=== PATIENT | female | born 1965 | race Caucasian/White ===

== ENCOUNTER → 2020-01-10 | Emergency (ER) | payer OTHER ==
[~2020-01-10] VITALS: Ht 157.5 cm; Wt 49.9 kg
[~2020-01-10] MED LIST: ASPirin-EC 325mg tab PO ONE; IOHEXOL 300 MG/ML 100ML BOTTLE IJ ONE; MORPHINE SULFATE 4 MG/ML SYR/VIAL IV ONE; ONDANSETRON HCL 4 MG/2 ML VIAL IV ONE; PIPERACILLIN-TAZOB 3.375GM 100 ML IV ONE; SODIUM CHLORIDE 0.9% 1,000 ML IV ONE; VANCOMYCIN 1GM/250ML 250 ML IV ONE
[2020-01-10 21:58] LABS: Basophils # (auto) 0.1 10 ^3/uL (0-0.2); Basophils % (auto) 0.7 % (0.0-2.0); Eosinophils # (auto) 0.1 10 ^3/uL (0-0.8); Lymphocytes # (auto) 2.2 10 ^3/uL (0.4-5.4); Mean Corpuscular Volume 67.1 fL (80.0-100.0); Neutrophils # (auto) 16.6 10 ^3/uL (1.6-8.6)
[2020-01-10 22:00] LABS: Eosinophils % (auto) 0.6 % (0.0-7.0); Hematocrit 30.9 % (36.0-46.0); Hemoglobin 9.4 g/dL (12.2-16.2); Lymphocytes % (auto) 11.1 % (10.0-50.0); Mean Corpuscular Hemoglobin 20.5 pg (28.0-32.0); Mean Corpuscular Hgb Conc. 30.5 g/dL (32.0-36.0); Monocytes # (auto) 0.9 10 ^3/uL (0-1.3); Monocytes % (auto) 4.5 % (0.0-12.0); Neutrophils % (auto) 83.1 % (37.0-80.0); Red Cell Distribution Width 17.8 % (11.8-14.3)
[2020-01-10 22:07] LABS: Urine Bacteria MOD /hpf (None Seen); Urine Blood 2+ /uL (Negative); Urine Mucus FEW (None Seen); Urine WBC 292 /hpf (0 - 5); Urine WBC Clumps PRESENT /hpf (None Seen)
[2020-01-10 22:19] LABS: Albumin 1.9 g/dL (3.4-5.0); Anion Gap 5 (5-15); Blood Urea Nitrogen 12 mg/dL (7-18); Calcium 8.1 mg/dL (8.5-10.1); Carbon Dioxide 29 mmol/L (21-32); Chloride 103 mmol/L (98-107); Glucose 93 mg/dL (74-106); Potassium 4.1 mmol/L (3.5-5.1); Sodium 137 mmol/L (136-145)
[2020-01-10 22:20] LABS: Platelet Count (auto) 787 10^3/uL (140-450)
[2020-01-10 22:21] LABS: Alanine Aminotransferase 11 U/L (13-56); Aspartate Aminotransferase 13 U/L (15-37); BUN/Creatinine Ratio 28.6; GFR African American 203 mL/min; GFR Non-African American 168 mL/min
[2020-01-10 22:26] LABS: Alkaline Phosphatase 121 U/L (45-117); Bilirubin, Total 0.2 mg/dL (0.2-1.0); Creatine Kinase IFCC 39 U/L (26-192); Total Protein 5.8 g/dL (6.4-8.2)
[2020-01-10 23:31] LABS: INR 3.92 (0.9-1.15); Partial Thromboplastin Time 61.7 sec (23.64-32.05)
[2020-01-11 04:28] VITALS: BP 112/71
== END | disposition short-term general hospital (02) ==
LOC: ER 20:45
DX: L89.319 Pressure ulcer of right buttock, unspecified stage (principal); L08.89 Other specified local infections of the skin and subcutaneous tissue; I83.229 Varicose veins of left lower extremity with both ulcer of unspecified site and inflammation; L97.929 Non-pressure chronic ulcer of unspecified part of left lower leg with unspecified severity; M86.8X8 Other osteomyelitis, other site; N39.0 Urinary tract infection, site not specified; D47.3 Essential (hemorrhagic) thrombocythemia; E11.9 Type 2 diabetes mellitus without complications; G70.00 Myasthenia gravis without (acute) exacerbation; G35 Multiple sclerosis; Z74.01 Bed confinement status
CPT/HCPCS: 36415; 72193; 73700; 80053; 81001; 82550; 83605; 84484; 85025; 85379; 85610; 85730; 87040; 87086; 87205; 96365; 96366; 96367; 96375; 96376; 99285; J2270; J2405; J2543; J3370; J7030; Q9967; 87077; 87147; 87186